=== PATIENT | male | born 1990 | race Caucasian/White ===

== ENCOUNTER 2017-01-25 16:50 | Emergency (ER) | payer BC ==
[2017-01-25 17:00] VITALS: BP 141/85
--- OUTSIDE RECORDS SUMMARY | 2017-01-25 17:12 | XMS REPORT | Continuity of Care Document ---
:1990 Author Organization [facility] [place] [address] Care Team Providers Name Role Phone Unavailable Primary Care Provider Unavailable Source Comments This disclosure is being made pursuant to the [employer] program and maynot contain all information available regarding this patient.[facility] Active Allergies and Adverse Reactions Not on File Current Medications Be aware that medications may not be up to date as of this document. Alwaysverify current medications with the patient. Not on file Active Problems Not on file Social History Tobacco Use Types Packs/Day Years Used Date Never Assessed Plan of Care Health Maintenance Due Date Last Done Comments HPV Vaccine ([id number]) (1 of 3 - Male 3 Dose Series) 2001 Retired-Pertussis Vaccine Adult 2009 Retired-Tetanus Vaccine Adult 2009 Retired-INFLUENZA VACCINE 04/16/2015 Results from Last 3 Months Not on file
--- NOTE | 2017-01-25 17:19 | ERNOTE ---
GI Bleeding/Rectal Pain ER Date of Service: 01/25/17 Presenting Symptoms: rectal bleeding Time Seen by Provider: 01/25/17 17:05 Source: patient, RN notes reviewed Exam Limitations: no limitations Immunizations: IMMUNIZATION HX Immunizations Up to Date Yes History of Influenza Vaccine No Hx Pneumococcal Vaccination No Allergies/Adverse Reactions: Allergies No Known Allergies Allergy (Verified 01/25/17 17:01) Home Medications: HOME MEDICATIONS NK [No Home Medication] 03/10/16 [Last Taken Unknown] - Pain Score Pain Score #1 Pain Score: 0 Narrative: 26 y/o male ambulatory to the ED for rectal bleeding that began earlier today. He has had 3 episodes of passing bright red blood. He denies any rectal pain. He is homosexual and has anal intercourse, but none recently. He has had several episodes of similar bleeding over the past 8 to 9 months, but they resolved more quickly. He denies constipation as well. Nausea/Vomiting: Present: none Abdominal Pain: Present: none Rectal Bleeding: Present: without stool, bright red blood on paper, blood mixed with stool Associated Symptoms: Denies: black stools, tarry stools, constipation/hard stools, back pain, fainting, dizziness, light headedness, rectal pain, diarrhea Prior Treament: Denies: recently seen Review of Systems - Review of Systems Constitutional: Absent: recent illness, fever, chills, malaise EYE: Present: no symptoms reported ENT: Present: no symptoms reported Respiratory: Absent: shortness of breath, cough Cardiology: Absent: chest pain, palpitations, syncope Gastrointestinal/Abdominal: Absent: nausea, vomiting, diarrhea, constipation, abdominal pain Genitourinary: Present: no symptoms reported Musculoskeletal: Absent: back pain, muscle pain Skin: Absent: rash, lesions, lumps Neurological: Absent: headache, dizziness/light-headedness Endocrine: Present: no symptoms reported Hematologic/Lymphatic: Absent: easy bruising, easy bleeding Psych: Present: no symptoms reported - Patient's Past Medical History Patient History - Medical: Anxiety Patient History - Cardiac/Respiratory: No pertinent hx Patient History - Cancer: No Hx of Cancer Patient History - Surgical Procedures: Colonoscopy, Other Patient History - Other: None - Social History Living Situations: home Abuse History: No History of abuse Psych History: Hx of Anxiety Smoking Status: Current every day smoker Alcohol Use: none Drug Use: none - Immunizations Immunizations Up to Date: Yes Hx Pneumococcal Vaccination: No History of Influenza Vaccine: No Physical Exam - Physical Exam General Appearance: Present: wd/wn, alert, no apparent distress, anxious Respiratory: Present: no respiratory distress, normal breath sounds, no accessory muscle use, lungs clear Cardiovascular/Chest: Present: regular rate, rhythm, no murmur, normal peripheral pulses Gastrointestinal/Abdominal: Present: normal bowel sounds, nontender, nondistended, soft Rectal Exam: Present: nontender, normal rectal tone, other - rectal lining inflammed and friable appearing with small amounts of blood present, 2 small internal papules seen on anoscopy as well. Absent: heme negative stool - positive, mass, hemorrhoids Neurological Exam: Present: alert, oriented, normal mood/affect, no motor/ sensory deficits Skin Exam: Present: normal color, warm/dry ED Progress - Results and Orders Patient's Lab Results:: I have reviewed the patient's lab results. - Vital Signs Patient's Vital Signs:: I have reviewed the patient's vital signs. Vital Signs: Vital Signs 01/25/17 16:57 Temperature 36.6 C Pulse Rate 92 Respiratory 12 Rate Blood Pressure 141/85 O2 Sat by Pulse 100 Oximetry - Progress/Reassessment Chief Complaint: Rectal Bleeding Progress:: Unchanged Plan - Plan Plan: Reassured patient that the amount of bleeding he is having is not life threatening, but discussed need for follow up for further evaluation as he has obvious blood in his stools and internal rectal inflammation. Departure Clinical Impression: Rectal bleeding - Departure Disposition: Home Follow Up Needed Condition: Stable Instructions: Anal Fissure, Adult Additional Instructions: Contact Hollie Marin or Dr. Haq for follow up Return if symptoms worsen Referrals: Hollie Marin FNP [Primary Care Provider] - Jesus Haq MD [Associate] -
== END 2017-01-25 17:54 | disposition home or self-care (01) ==
LOC: ER 16:50
DX: K62.5 Hemorrhage of anus and rectum (principal); Z72.0 Tobacco use

== ENCOUNTER 2021-01-07 06:24 | Observation (INO) ==
[2021-01-07] MEDS ORDERED: ONDANSETRON HCL/PF 2 MG/ML VIAL IV ONE ×2 (06:51→07:43)
[2021-01-07] MEDS ORDERED: KETOROLAC TROMETHAMINE 30 MG/ML VIAL IV ONE (06:52)
[2021-01-07] MEDS ORDERED: NORMAL SALINE 1,000 ML IV ONE (06:52)
--- NOTE | 2021-01-07 06:54 | ERNOTE ---
<Ryan Mcdonald - Last Filed: 01/07/21 07:44> Abdominal HPI - General Chief Complaint: Abdominal Pain Time Seen by Provider: 01/07/21 06:43 Source: patient Exam Limitations: no limitations - Immun/Allergies/Home Medications Immunizatons: IMMUNIZATION HX Immunizations Up to Date Yes History of Influenza Vaccine Yes Hx Pneumococcal Vaccination No Allergies/Adverse Reactions: Allergies No Known Allergies Allergy (Verified 11/26/20 14:00) Home Medications: HOME MEDICATIONS diphenhydramine HCl 25 mg capsule 25 mg PO HS 08/31/20 [Last Taken Unknown] loratadine 10 mg tablet 10 mg PO DAILY PRN 08/31/20 [Last Taken Unknown] pseudoephedrine HCl 30 mg tablet 30 mg PO Q6H PRN 08/31/20 [Last Taken Unknown] - History of Present Illness Narrative: Patient states approximately 6 hours ago he began having generalized abdominal pain. Is located more to the lower right lower quadrant at this time. He states it is both stabbing and somewhat crampy. Hurts more with deep breaths and any movement. He denies any other illness. Timing: getting worse Quality: severe, cramping, stabbing Activities at Onset: sleep Associated Symptoms: Present: nausea Prior Abdominal Problems: Present: none Review of Systems - Review of Systems Constitutional: Absent: recent illness, fever, chills EYE: Absent: vision changes ENT: Absent: nose congestion, nasal drainage Respiratory: Absent: shortness of breath, cough Cardiology: Absent: chest pain, palpitations Gastrointestinal/Abdominal: Present: See HPI, diarrhea Genitourinary: Absent: frequency, dysuria Musculoskeletal: Absent: back pain Skin: Absent: rash, change in color Neurological: Absent: headache, dizziness/light-headedness Endocrine: Present: excessive sweating Medical History (Last Reviewed 01/07/21 @ 06:50 by Ryan Mcdonald DO) COVID-19 vaccine series completed (Acute) Has received influenza vaccination in current influenza season (Acute) Rash (Acute) Rash of genitalia (Acute) Rectal bleeding (Acute) Vomiting and diarrhea (Acute) Abdominal pain in male (Acute) Cellulitis (Acute) Acute viral pharyngitis (Acute) Contact dermatitis (Acute) No active medical problems Surgical History: Surgical History (Last Reviewed 01/07/21 @ 06:50 by Ryan Mdconald DO) History of colonoscopy History of tonsillectomy Family History: Family History (Last Reviewed 01/07/21 @ 06:50 by Ryan Mcdonald DO) Other Unknown family medical history Social History: (Last Reviewed 01/07/21 @ 06:50 by Ryan Mcdonald DO) Social History: fpc: No Marital status: Life Partner household members: significant other current occupational status: employed current occupation: [employer] Highest level of school completed/degree received: high school graduate Service: No Tobacco: Smoking Status: Current every day smoker second hand exposure: Yes Alcohol: alcohol intake: current Substance Use: substance use type: does not use Dietary Habits: caffeine: Yes Exercise: Physical activity functional status: normal ROM and activity Physical Exam - Physical Exam General Appearance: Present: wd/wn, alert, mild distress Head Exam: Present: normal inspection, no evidence of injury Eye Exam: Normal inspection: bilateral Neck: Present: normal inspection, nontender Respiratory: Present: no respiratory distress, normal breath sounds, lungs clear Cardiovascular/Chest: Present: regular rate, rhythm, no murmur Gastrointestinal/Abdominal: Present: normal bowel sounds, soft, tenderness - Right lower quadrant and midline suprapubic, rebound - Mild. Absent: guarding Back Exam: Present: normal inspection, normal range of motion, no CVA tenderness Extremity Exam: Present: normal inspection, normal range of motion, no edema Neurological Exam: Present: alert, oriented, no motor/sensory deficits Skin Exam: Present: normal color, warm/dry Lymphatic Exam: Present: no adenopathy Progress - Results and Orders Patient's Lab Results:: I have reviewed the patient's lab results. - Vital Signs Patient's Vital Signs:: I have reviewed the patient's vital signs. Vital Signs: Vital Signs 01/07/21 06:33 Temperature 37.0 C Pulse Rate 100 Respiratory Rate 14 Blood Pressure 130/90 H O2 Sat by Pulse Oximetry 98 - X-Ray X-Ray #1 X-Ray: abdomen Interpretation: Interp. by me X-ray Comments: Specific bowel gas pattern. No free air no air-fluid levels, no evidence of obstruction. - Progress/Reassessment Chief Complaint: Abdominal Pain - Transfer of Care Physician Sign Out: Ryan Mcdonald Receiving Physician: Young Rios Pending Results: CT/MRI results Expected Disposition: Admit Departure Clinical Impression: Abdominal pain in male, Diverticulosis, Intractable abdominal pain - Departure Disposition: Short Term Hospital Inpatient Condition: Fair Referrals: Hollie Marin FNP [Primary Care Provider] - <Young Rios - Last Filed: 01/07/21 10:47> Abdominal HPI - Narrative Date of Service: 01/07/21 - Immun/Allergies/Home Medications Immunizatons: IMMUNIZATION HX Immunizations Up to Date Yes History of Influenza Vaccine Yes Hx Pneumococcal Vaccination No Medical History (Last Reviewed 01/07/21 @ 06:50 by Ryan Mcdonald DO) COVID-19 vaccine series completed (Acute) Has received influenza vaccination in current influenza season (Acute) Rash (Acute) Rash of genitalia (Acute) Rectal bleeding (Acute) Vomiting and diarrhea (Acute) Abdominal pain in male (Acute) Cellulitis (Acute) Acute viral pharyngitis (Acute) Contact dermatitis (Acute) No active medical problems Surgical History: Surgical History (Last Reviewed 01/07/21 @ 06:50 by Ryan Mcdonald DO) History of colonoscopy History of tonsillectomy Family History: Family History (Last Reviewed 01/07/21 @ 06:50 by Ryan Mcdonald DO) Other Unknown family medical history Social History: (Last Reviewed 01/07/21 @ 06:50 by Ryan Mcdonald DO) Social History: fpc: No Marital status: Life Partner household members: significant other current occupational status: employed current occupation: [employer] Highest level of school completed/degree received: high school graduate Service: No Tobacco: Smoking Status: Current every day smoker second hand exposure: Yes Alcohol: alcohol intake: current Substance Use: substance use type: does not use Dietary Habits: caffeine: Yes Exercise: Physical activity functional status: normal ROM and activity Progress - Vital Signs Vital Signs: Vital Signs 01/07/21 06:33 01/07/21 07:06 01/07/21 07:36 Temperature 37.0 C Pulse Rate 100 77 76 Respiratory Rate 14 14 14 Blood Pressure 130/90 H 127/75 119/66 O2 Sat by Pulse Oximetry 98 95 97 01/07/21 08:06 01/07/21 08:36 01/07/21 10:24 Temperature 37.0 C Pulse Rate 70 76 80 Respiratory Rate 14 14 14 Blood Pressure 136/92 H 121/86 121/85 O2 Sat by Pulse Oximetry 99 94 96 - Progress/Reassessment Progress Note-Subjective: 01/07/21 10:37 Upon reevaluation the patient he is still complaining of periumbilical right lower and left lower quadrant pain down to a 4 but still uncomfortable and is nauseous this is still present. Findings have shown an elevated white count and an unremarkable CT except for diverticulosis. Patient to touch feels hotter than the 37 degree temperature. So we will keep in the hospital admit for pain management and observation and antibiotics Plan - Plan Plan: Patient be admitted to Dr. Bosch to observation.
[2021-01-07 07:15] LABS: Hematocrit 49.8 % (42.0-52.0); Hemoglobin 16.7 gm/dL (13.5-18.0); Mean Cell Volume 92.6 fl (78-100); Mean Corpuscular Hgb Conc 33.5 g/dl (32-36); Mean Platelet Volume 10.1 fl (8-11.3); Neutrophil # 10.2 K/mm3 (1.3-6.0); Neutrophil % 71.8 % (42-75.0); Platelet Count 290 K/mm3 (150-450); Red Blood Count 5.38 M/mm3 (4.7-6.0); Red Cell Distribution Width 12.1 % (11.5-14.0); White Blood Count 14.2 K/mm3 (4.0-10.5)
[2021-01-07 07:16] LABS: Urine Bilirubin Negative (NEGATIVE); Urine Blood Negative /ul (NEGATIVE); Urine Ketone Negative (NEGATIVE); Urine Nitrite Negative (NEGATIVE); Urine Protein Negative (NEGATIVE); Urine Specific Gravity <=1.005 SP.GR. (1.005-1.030); Urine Urobilinogen Normal (NORMAL)
[2021-01-07 07:24] LABS: Urine Appearance Slightly Cloudy (CLEAR); Urine Color Pale Yellow
[2021-01-07 07:25] LABS: Urine Amorphous Sediment Few - 1+ (NONE-FEW); Urine Bacteria 1+; Urine RBC None Seen /hpf (0-5); Urine WBC 0-5 /hpf (0-5)
[2021-01-07 07:32] LABS: Albumin * 4.1 gm/dl (3.4-5.0); Anion Gap 13.2 mmol/L (6.8-13.8); Bilirubin, Total 0.4 mg/dL (0.0-1.1); Ca. Corrected For Albumin 9.1 mg/dL (8.4-10.2); Calcium * 9.5 mg/dL (7.9-10.9); Carbon Dioxide 28.5 mmol/L (24-32.6); Potassium 3.7 mmol/L (3.4-4.6); Total Protein 7.7 gm/dL (6.2-8.2)
[2021-01-07] MEDS ORDERED: DIATRIZOATE MEGLUMINE, SODIUM 30 ML BTL PO ONE (07:43)
[2021-01-07] MEDS ORDERED: MORPHINE SULFATE 2 MG/ML DISP.SYRIN IV ONE ×2 (07:43→10:27)
[2021-01-07] MEDS ORDERED: METOCLOPRAMIDE HCL 5 MG/ML VIAL IV ONE (10:27)
[2021-01-07] MEDS: LEVOFLOXACIN IN DEXTROSE 5 % 500 MG/100 ML BAG IV SCH (11:13)
[2021-01-07] MEDS ORDERED: NICOTINE 21 MG PATC TD SCH (13:00)
[2021-01-07] MEDS ORDERED: ACETAMINOPHEN 500 MG TABLET PO PRN (13:06)
--- NOTE | 2021-01-07 13:06 | HP ---
Chief Complaint - Chief Complaint Date of Service: 01/07/21 Time of Service: 12:36 Chief Complaint: Abdominal pain History of Present Illness: 30-year-old male with a past medical history of diarrhea, rectal bleeding presents from home with complaints of nausea, diarrhea and right lower abdominal pain that began around midnight last night. His symptoms progressively worsened so he presented to the emergency room. He states he has had about 8 watery bowel movements in the past 12 hours. He denies having eaten anything out of the ordinary. He states as a child he had a lot of abdominal issues with diarrhea and pain. He had colonoscopies as a teenager that did not show any abnormalities. He states he had a lot of stress from his family of origin and feels that was contributing to his symptoms as a child. In the ER he is found to have a mild leukocytosis of 14.2, chemistry and vitals were stable. CT of the abdomen/pelvis showed no acute intra-abdominal or pelvic pathology, no CT evidence for appendicitis, mild diverticulosis. He has had several episodes of diarrhea while in the ER and once he was on the inpatient unit. He denies blood in the stool. He was given morphine in the emergency room for pain control. He is being admitted for further evaluation and monitoring. Medical History (Last Reviewed 01/07/21 @ 06:50 by Ryan Mcdonald DO) COVID-19 vaccine series completed (Acute) Has received influenza vaccination in current influenza season (Acute) Rash (Acute) Rash of genitalia (Acute) Rectal bleeding (Acute) Vomiting and diarrhea (Acute) Abdominal pain in male (Acute) Cellulitis (Acute) Acute viral pharyngitis (Acute) Contact dermatitis (Acute) No active medical problems Surgical History: Surgical History (Last Reviewed 01/07/21 @ 06:50 by Ryan Mcdonald DO) History of colonoscopy History of tonsillectomy Family History: Family History (Last Updated 01/07/21 @ 12:25 by Joyce Luo RN) Father Heart disease Grandmother Heart disease Social History: (Last Updated 01/07/21 @ 12:25 by Joyce Luo RN) Social History: mcc: No Marital status: Life Partner household members: significant other current occupational status: employed current occupation: [employer] Highest level of school completed/degree received: high school graduate Service: No Tobacco: Smoking Status: Current every day smoker tobacco type: cigarettes Smoking packs per day: 1 second hand exposure: Yes Alcohol: alcohol intake: current Substance Use: substance use type: does not use Dietary Habits: caffeine: Yes Exercise: Physical activity functional status: normal ROM and activity Review Of Systems (GEN) - Review of Systems Generalized/Overall Review: Absent: Fever Respiratory: Absent: Shortness of Breath Cardiac: Absent: Chest Pain Abdominal: Present: Abdominal Pain, Diarrhea Misc: All systems neg except as marked Immunizations: IMMUNIZATION HX Immunizations Up to Date Yes History of Influenza Vaccine Yes Hx Pneumococcal Vaccination No Allergies/Adverse Reactions: Allergies Allergy/AdvReac Type Severity Reaction Status Date / Time No Known Allergies Allergy Verified 11/26/20 14:00 Home Medications: HOME MEDICATIONS NK 01/07/21 [Last Taken Unknown] Exam - Exam Vital Signs: Vital Signs - Last Taken Temp 36.8 C 01/07/21 12:07 Pulse 69 01/07/21 12:07 Resp 12 01/07/21 12:07 BP 125/63 01/07/21 12:07 Pulse Ox 96 01/07/21 12:07 Constitutional: Present: Alert, Cooperative, Well developed, Well nourished, No distress, Young ENT Exam: Present: hearing grossly normal, moist mucous membranes Eye Exam: bilateral eye: normal inspection, EOMI Neck: Present: non-tender, supple. Absent: lymphadenopathy (R), lymphadenopathy (L) Back Exam: Present: normal inspection, no CVA tenderness, no vertebral tenderness Respiratory: Present: lungs clear, no respiratory distress, no accessory muscle use, No wheezing. Absent: rhonchi Cardiovascular/Chest: Present: normal peripheral pulses, regular rate, rhythm, no edema, no murmur Peripheral Pulses: dorsalis-pedis (R): 2+, dorsalis-pedis (L): 2+ Abdomen: Present: Normal bowel sounds, soft, nondistended, no rebound tenderness, tender - Left lower quadrant, suprapubic and right lower quadrant. Worse in the right lower quadrant. Extremity: Present: no pedal edema Skin Exam: Present: normal color, warm/dry Neurologic: Present: alert, normal mood/affect Appearance: Present: appropriate appearance Eye contact: Present: cooperative Thoughts: Present: normal thought pattern, normal mood /affect Diagnostic Studies: Abnormal Lab Results 0501/07/21 01/07/21 Range/Units 07:00 07:00 07:00 WBC 14.2 H (4.0-10.5) K/mm3 Immature Gran # (Auto) 0.06 H (0.000-0.0310) K/mm3 Lymphocytes % 17.1 L (20-51) % Neutrophils # 10.2 H (1.3-6.0) K/mm3 Monocytes # 1.1 H (0.0-1.0) k/mm3 Lipase 54 L (73-393) U/L Urine Bacteria 1+ H (NONE) Laboratory Results WBC 14.2 K/mm3 (4.0-10.5) H 01/07/21 07:00 RBC 5.38 M/mm3 (4.7-6.0) 01/07/21 07:00 Hgb 16.7 gm/dL (13.5-18.0) 01/07/21 07:00 Hct 49.8 % (42.0-52.0) 01/07/21 07:00 MCV 92.6 fl (78-100) 01/07/21 07:00 MCH 31.0 pg (27-31) 01/07/21 07:00 MCHC 33.5 g/dl (32-36) 01/07/21 07:00 RDW 12.1 % (11.5-14.0) 01/07/21 07:00 Plt Count 290 K/mm3 (150-450) 01/07/21 07:00 MPV 10.1 fl (8-11.3) 01/07/21 07:00 Immature Gran % (Auto) 0.40 % (0.001-0.429) 01/07/21 07:00 Immature Gran # (Auto) 0.06 K/mm3 (0.000-0.0310) H 01/07/21 07:00 Neutrophils % 71.8 % (42-75.0) 01/07/21 07:00 Lymphocytes % 17.1 % (20-51) L 01/07/21 07:00 Monocytes % 7.4 % (0.0-9) 01/07/21 07:00 Eosinophils % 2.7 % (0.0-3.0) 01/07/21 07:00 Basophils % 0.6 % (0.0-1.0) 01/07/21 07:00 Nucleated RBC % 0.0 k/mm3 (0-1) 01/07/21 07:00 Neutrophils # 10.2 K/mm3 (1.3-6.0) H 01/07/21 07:00 Lymphocytes # 2.43 k/mm3 (1.5-3.5) 01/07/21 07:00 Monocytes # 1.1 k/mm3 (0.0-1.0) H 01/07/21 07:00 Eosinophils # 0.4 k/mm3 (0.0-0.7) 01/07/21 07:00 Absolute Basophils 0.1 k/mm3 (0.0-0.1) 01/07/21 07:00 Sodium 142 mmol/L (132-142) 01/07/21 07:00 Plasma Sodium 142 mmol/L (130-142) 01/07/21 07:00 Potassium 3.7 mmol/L (3.4-4.6) 01/07/21 07:00 Chloride 104 mmol/L (97-106) 01/07/21 07:00 Carbon Dioxide 28.5 mmol/L (24-32.6) 01/07/21 07:00 Anion Gap 13.2 mmol/L (6.8-13.8) 01/07/21 07:00 BUN 15 mg/dL (6-23) 01/07/21 07:00 Creatinine 1.00 mg/dL (0.4-1.4) 01/07/21 07:00 Est GFR (Non-Af Amer) 93 mL/min (60-130) 01/07/21 07:00 BUN/Creatinine Ratio 15.0 (9.0-21.6) 01/07/21 07:00 Random Glucose 94 mg/dL (70-110) 01/07/21 07:00 Lactic Acid, Venous 1.7 mmol/L (0.4-2.0) 01/07/21 07:00 Calcium 9.5 mg/dL (7.9-10.9) 01/07/21 07:00 Calcium Adj for Albumin 9.1 mg/dL (8.4-10.2) 01/07/21 07:00 Total Bilirubin 0.4 mg/dL (0.0-1.1) 01/07/21 07:00 AST 23 U/L (0-48) 01/07/21 07:00 ALT 42 U/L (19-67) 01/07/21 07:00 Alkaline Phosphatase 70 U/L (50-170) 01/07/21 07:00 Total Protein 7.7 gm/dL (6.2-8.2) 01/07/21 07:00 Albumin 4.1 gm/dl (3.4-5.0) 01/07/21 07:00 Amylase 40 U/L (25-115) 01/07/21 07:00 Lipase 54 U/L (73-393) L 01/07/21 07:00 Urine Color Pale yellow 01/07/21 07:00 Urine Appearance Slightly cloudy (CLEAR) 01/07/21 07:00 Urine pH 6.0 pH (5.0-7.0) 01/07/21 07:00 Ur Specific [place] <=1.005 SP.GR. (1.005-1.030) 01/07/21 07:00 Urine Protein Negative mg/dL (NEGATIVE) 01/07/21 07:00 Urine Glucose (UA) Negative mg/dL (NEGATIVE) 01/07/21 07:00 Urine Ketones Negative mg/dL (NEGATIVE) 01/07/21 07:00 Urine Blood Negative /ul (NEGATIVE) 01/07/21 07:00 Urine Nitrate Negative (NEGATIVE) 01/07/21 07:00 Urine Bilirubin Negative mg/dl (NEGATIVE) 01/07/21 07:00 Urine Urobilinogen Normal EU/dl (NORMAL) 01/07/21 07:00 Ur Leukocyte Esterase Negative /ul (NEGATIVE) 01/07/21 07:00 Urine RBC None seen /hpf (0-5) 01/07/21 07:00 Urine WBC 0-5 /hpf (0-5) 01/07/21 07:00 Ur Epithelial Cells 0-5 /hpf (0-5) 01/07/21 07:00 Amorphous Sediment Few - 1+ (NONE-FEW) 01/07/21 07:00 Urine Bacteria 1+ (NONE) H 01/07/21 07:00 Urine Culture Comments No culture indicated 01/07/21 07:00 SARS-CoV-2 (PCR) Not detected (NotDetected) 01/07/21 10:50 Assessment/Plan - Narrative Narrative: 30-year-old male with a past medical history of diarrhea, rectal bleeding presents from home with complaints of nausea, diarrhea and right lower abdominal pain that began around midnight last night. His symptoms progressively worsened so he presented to the emergency room. He states he has had about 8 watery bowel movements in the past 12 hours. He has been having a lot of gas/belching over the past few weeks. He denies having eaten anything out of the ordinary. He states as a child he had a lot of abdominal issues with diarrhea and pain. He had colonoscopies as a teenager that did not show any abnormalities. He states he had a lot of stress from his family of origin and feels that was contributing to his symptoms as a child. In the ER he is found to have a mild leukocytosis of 14.2, chemistry and vitals were stable. CT of the abdomen/pelvis showed no acute intra-abdominal or pelvic pathology, no CT evidence for appendicitis, mild diverticulosis. He has had several episodes of diarrhea while in the ER and once he was on the inpatient unit. He was given morphine in the emergency room for pain control. He is being admitted for further evaluation and monitoring. Plan #1 continue with clear liquid diet and advance diet as tolerated #2 CBC in the morning #3 pain management with Tylenol #4 nicotine patch, he smokes 1 pack of cigarettes daily - Assessment/Plan (1) Intractable abdominal pain Problem: Acute (2) Diarrhea Problem: Acute (3) Leukocytosis Problem: Acute (4) Diverticulosis Problem: Acute (5) IBS (irritable bowel syndrome) Problem: Suspected Qualifiers: Irritable bowel syndrome type: with diarrhea Qualified Code(s): K58.0 - Irritable bowel syndrome with diarrhea
[2021-01-08 06:38] LABS: Hematocrit 48.6 % (42.0-52.0); Hemoglobin 15.9 gm/dL (13.5-18.0); Mean Cell Volume 95.7 fl (78-100); Mean Corpuscular Hemoglobin 31.3 pg (27-31); Mean Corpuscular Hgb Conc 32.7 g/dl (32-36); Mean Platelet Volume 10.3 fl (8-11.3); Neutrophil # 4.4 K/mm3 (1.3-6.0); Neutrophil % 59.1 % (42-75.0); Platelet Count 243 K/mm3 (150-450); Red Blood Count 5.08 M/mm3 (4.7-6.0); Red Cell Distribution Width 12.1 % (11.5-14.0); White Blood Count 7.4 K/mm3 (4.0-10.5)
--- NOTE | 2021-01-08 09:53 | DS ---
(1) Intractable abdominal pain Problem: Acute (2) Diarrhea Problem: Acute (3) Leukocytosis Problem: Acute (4) Diverticulosis Problem: Acute (5) IBS (irritable bowel syndrome) Problem: Suspected Qualifiers: Irritable bowel syndrome type: with diarrhea Qualified Code(s): K58.0 - Irritable bowel syndrome with diarrhea Hospital Course: 30-year-old male with a past medical history of diarrhea, rectal bleeding presents from home with complaints of nausea, diarrhea and right lower abdominal pain that began around midnight last night. His symptoms progressively worsened so he presented to the emergency room. He states he has had about 8 watery bowel movements in the past 12 hours. He has been having a lot of gas/belching over the past few weeks. He denies having eaten anything out of the ordinary. He states as a child he had a lot of abdominal issues with diarrhea and pain. He had colonoscopies as a teenager that did not show any abnormalities. He states he had a lot of stress from his family of origin and feels that was contributing to his symptoms as a child. In the ER he is found to have a mild leukocytosis of 14.2, chemistry and vitals were stable. CT of the abdomen/pelvis showed no acute intra-abdominal or pelvic pathology, no CT evidence for appendicitis, mild diverticulosis. He has had several episodes of diarrhea while in the ER and once he was on the inpatient unit. He was given morphine in the emergency room for pain control. He is being admitted for further evaluation and monitoring. He is doing better today. He is abdominal pain has improved. He is tolerating a diet. Vitals remained stable. His leukocytosis has resolved. He is stable to be discharged home today on Levaquin 750 mg for 6 more days. He will follow-up with his PCP in the next 1 to 2 weeks. Procedures Performed: none Results and Findings: Lab Pending Results 01/07/21 07:00: WBC 14.2 H, RBC 5.38, Hgb 16.7, Hct 49.8, MCV 92.6, MCH 31.0, MCHC 33.5, RDW 12.1, Plt Count 290, MPV 10.1, Immature Gran % (Auto) 0.40, Immature Gran # (Auto) 0.06 H, Neutrophils % 71.8, Lymphocytes % 17.1 L, Monocytes % 7.4, Eosinophils % 2.7, Basophils % 0.6, Nucleated RBC % 0.0, Neutrophils # 10.2 H, Lymphocytes # 2.43, Monocytes # 1.1 H, Eosinophils # 0.4, Absolute Basophils 0.1 01/07/21 07:00: Sodium 142, Plasma Sodium 142, Potassium 3.7, Chloride 104, Carbon Dioxide 28.5, Anion Gap 13.2, BUN 15, Creatinine 1.00, Est GFR (Non-Af Amer) 93, BUN/Creatinine Ratio 15.0, Random Glucose 94, Calcium 9.5, Calcium Adj for Albumin 9.1, Total Bilirubin 0.4, AST 23, ALT 42, Alkaline Phosphatase 70, Total Protein 7.7, Albumin 4.1, Amylase 40, Lipase 54 L 01/07/21 07:00: Lactic Acid, Venous 1.7 01/07/21 07:00: Urine Color Pale yellow, Urine Appearance Slightly cloudy, Urine pH 6.0, Ur Specific Helen <=1.005, Urine Protein Negative, Urine Glucose (UA) Negative, Urine Ketones Negative, Urine Blood Negative, Urine Nitrate Negative, Urine Bilirubin Negative, Urine Urobilinogen Normal, Ur Leukocyte Esterase Negative, Urine RBC None seen, Urine WBC 0-5, Ur Epithelial Cells 0-5, Amorphous Sediment Few - 1+, Urine Bacteria 1+ H, Urine Culture Comments No culture indicated 01/07/21 10:50: SARS-CoV-2 (PCR) Not detected 01/08/21 06:15: WBC 7.4 D, RBC 5.08, Hgb 15.9, Hct 48.6, MCV 95.7, MCH 31.3 H, MCHC 32.7, RDW 12.1, Plt Count 243, MPV 10.3, Immature Gran % (Auto) 0.40, Immature Gran # (Auto) 0.03, Neutrophils % 59.1, Lymphocytes % 25.5, Monocytes % 9.9 H, Eosinophils % 4.3 H, Basophils % 0.8, Nucleated RBC % 0.0, Neutrophils # 4.4, Lymphocytes # 1.88, Monocytes # 0.7, Eosinophils # 0.3, Absolute Basophils 0.1 Discharge Location: Home Disposition: Home self-care Condition: Fair Discharge Activity: Activity as tolerated Discharge Diet: General/regular food Referrals: Hollie Marin FNP [Primary Care Provider] - Prescriptions (Any new or edited meds): Levofloxacin [Levaquin] 750 mg PO DAILY #6 tablet Complete Home Medications List: Complete Home Medication List: Levofloxacin [Levaquin] 750 mg PO DAILY #6 tablet 01/08/21 Forms: Patient Portal Registration, Work Release Form
[2021-01-08 10:58] VITALS: BP 116/82
[2021-01-08] MEDS: LEVOFLOXACIN IN DEXTROSE 5 % 500 MG/100 ML BAG IV SCH (11:11)
== END 2021-01-08 10:30 | disposition home or self-care (01) ==
LOC: ER 06:24 → MS 06:24
PROVIDERS: ADMIT Internal Medicine; ATTEND Internal Medicine